=== PATIENT | female | born 1980 | race Hispanic/Latino ===

== ENCOUNTER 2021-07-04 16:23 | Observation (INO) | payer OTHER ==
[~2021-07-04 16:23] MED LIST: DOCUSATE SODIUM 100 MG CAP PO SCH
[2021-07-05] MEDS ORDERED: ONDANSETRON 4 MG/2 ML INJ IV PRN (09:00)
[2021-07-05] MEDS ORDERED: ALUM-MAG HYDROXIDE-SIMETHICONE 200-200-20MG/5ML ORAL LIQD 30 ML PO PRN (09:00)
[2021-07-05] MEDS ORDERED: ACETAMINOPHEN 325 MG TAB PO PRN (09:00)
[2021-07-05] MEDS ORDERED: SODIUM CHLORIDE 0.45% 1000 ML 1,000 ML IV SCH (09:00)
[2021-07-05] MEDS ORDERED: oxyCODONE /ACETAMINOPHEN 5-325MG TAB PO PRN (09:00)
[2021-07-05] MEDS ORDERED: MAGNESIUM HYDROXIDE (MOM) ORAL LIQD UDC PO PRN (09:00)
--- NOTE | 2021-07-05 11:28 | History and Physical Report ---
History of Present Illness Date of examination: 07/05/21 Date of admission: 07/05/21 08:57 Chief complaint: lightheadedness and dizziness, presenting for transfusion History of present illness: Patient is a G0 with h/o of complex endometrial hyperplasia with atypia and anemia secondary t chronic blood loss presenting for transfusion. Has been experiencing lightheadedness and dizziness intermittently for the past few weeks. Denies SOB and palpitations. H/H in the office was <6.0. told to present for transfusion. Amenable to receiving blood products. Past History Past Medical History: hypertension Past Surgical History: appendectomy Social history: no significant social history Medications and Allergies Allergies Allergy/AdvReac Type Severity Reaction Status Date / Time erythromycin base Allergy Unknown Unverified 07/04/21 16:30 Home Medications Medication Instructions Recorded Confirmed Last Taken Type No Known Home Medications [No 07/05/21 07/05/21 Unknown History Reported Home Medications] Active Meds: Active Medications Acetaminophen (Acetaminophen 325 Mg Tab) 650 mg PO Q4H PRN PRN Reason: Pain MILD(1-3)/Fever >100.5/CROOK Al Hydrox/Mg Hydrox/Simethicone (Alum-Mag Hydroxide-Simethicone [id number] Oral Liqd 30 Ml) 30 ml PO Q4H PRN PRN Reason: Indigestion Diphenhydramine HCl (Diphenhydramine 25 Mg Cap) 25 mg PO Q8H PRN PRN Reason: Itching Docusate Sodium (Docusate Sodium 100 Mg Cap) 100 mg PO BID RADHA Sodium Chloride (Nacl 0.45% 1000 Ml) 1,000 mls @ 100 mls/hr IV DIRECT RADHA Sodium Chloride (Nacl 0.9% 500 Ml) 500 mls @ 0 mls/hr IV ONCE ONE Stop: 07/05/21 11:07 Magnesium Hydroxide (Magnesium Hydroxide (Mom) Oral Liqd Udc) 30 ml PO Q4H PRN PRN Reason: Constipation Ondansetron HCl (Ondansetron 4 Mg/2 Ml Inj) 4 mg IV Q8H PRN PRN Reason: Nausea And Vomiting Oxycodone/Acetaminophen (Oxycodone /Acetaminophen 5-325mg Tab) 1 tab PO Q6H PRN PRN Reason: Pain, Moderate (4-6) Sodium Chloride (Sodium Chloride 0.9% 10 Ml Flush Syringe) 10 ml IV BID RADHA Sodium Chloride (Sodium Chloride 0.9% 10 Ml Flush Syringe) 10 ml IV PRN PRN PRN Reason: LINE FLUSH Review of Systems Constitutional: fatigue Genitourinary Female: abnormal vaginal bleeding Menstruation: menses 8 or > days (lightheadedness, dizziness) Exam - Constitutional Vitals: Temp Pulse Resp BP Pulse Ox 97.9 F 87 22 172/98 07/05/21 10:23 07/05/21 10:23 07/05/21 10:23 07/05/21 10:23 General appearance: Present: no acute distress - Respiratory Respiratory effort: normal Respiratory: bilateral: CTA - Cardiovascular Rhythm: regular Heart Sounds: Present: S1 & S2 - Abdominal General gastrointestinal: Present: soft, non-tender Female genitourinary: Present: deferred - Rectal Rectal Exam: deferred Results - Labs CBC & Chem 7: 07/05/21 11:13 Assessment and Plan Symptomatic Anemia secondary to chronic blood loss -recent Hemoglobin 6 -Type and cross. Will transfuse 2 units pRBCS -Posttransfusion hemoglobin to assess for appropriate rise
[2021-07-05 11:58] LABS: Blood Urea Nitrogen 12 mg/dL (7-17); Calcium 8.9 mg/dL (8.4-10.2); Hemolysis Index 6
[2021-07-05 11:59] LABS: BUN/Creatinine Ratio 20
[2021-07-05] MEDS ORDERED: SODIUM CHLORIDE 0.9% 500 ML 500 ML IV SCH (12:00)
[2021-07-05] MEDS ORDERED: diphenhydrAMINE 25 MG CAP PO PRN (12:00)
[2021-07-05] MEDS ORDERED: LISINOPRIL 20 MG TAB PO SCH (16:00)
[2021-07-05] MEDS ORDERED: amLODIPine 5 MG TAB PO SCH (16:00)
[2021-07-05] MEDS ORDERED: hydroCHLOROthiazide 25 MG TAB PO SCH (16:00)
[2021-07-05 21:53] LABS: Hematocrit 24.8 % (30.3-42.9); Hemoglobin 7.7 gm/dl (10.1-14.3)
--- NOTE | 2021-07-05 23:06 | Event Note ---
H/H reviewed. 7.7. Previously discussed with patient goal Hemoglobin 8 or above. Will transfuse additional unit. Patient BP also noted to be elevated. Now s/p home meds of amlodipine, HCTZ, and lisinopril. Will continue to monitor. If continues to be elevated will give dose of nifedipine. Consider medication adjustments and hospitalist consult in AM.
[2021-07-05] MEDS ORDERED: SODIUM CHLORIDE 0.9% 500 ML 500 ML IV ONE (23:38)
[2021-07-06 06:13] LABS: Hematocrit 24.8 % (30.3-42.9)
--- NOTE | 2021-07-06 07:34 | Discharge Summary ---
Providers - Providers Date of Admission: 07/05/21 08:57 Date of discharge: 07/06/21 Attending physician: BRENNAN BARTHOLOMEW Primary care physician: CHEMICAL TESTER Hospitalization Reason for admission: symptomatic anemia secondary to chronic blood loss Condition: Stable Pertinent studies: Posttransfusion CBC- Hemoglobin 8.0 Procedures: none Hospital course: Patient is a 41 yo G0 with history of complex endometrial hyperplasia with atypia and HTN who presented with symptomatic anemia for transfusion. Hemoglobin in office <6.0. Patient admitted and transfused 3 units of pRBCs to a posttransfusion hemoglobin of 8.0. On HD#1 during transfusion patient noted to have elevated blood pressures. Patient noted she had not taken her home medications for HTN. Given home medications of Amlodipine 5 mg, HCTZ 25 mg, and Lisinopril 20 mg. Blood pressures initially remained elevated, but responded and have been within normal limits. Patient discharged to home in stable condition on HD#2. Disposition: 01 HOME / SELF CARE / HOMELESS Final Discharge Diagnosis (Prints w/discharge instructions): Symptomatic chronic blood loss anemia Time spent for discharge: 30 minutes - Discharge Diagnoses (1) Anemia due to blood loss, chronic Status: Chronic (2) BMI 50.0-59.9, adult Status: Chronic (3) Complex atypical endometrial hyperplasia Status: Chronic (4) Excessive and frequent menstruation with regular cycle Status: Chronic (5) Hypertension Status: Chronic Qualifiers: Hypertension type: unspecified Qualified Code(s): I10 - Essential (primary) hypertension Core Measure Documentation - Palliative Care Palliative Care/ Comfort Measures: Not Applicable - Core Measures Any of the following diagnoses?: none Exam - Constitutional Vitals: Temp Pulse Resp BP Pulse Ox 98.0 F 87 18 128/76 97 07/06/21 05:05 07/06/21 05:05 07/06/21 05:05 07/06/21 05:05 07/06/21 05:05 General appearance: Present: no acute distress - EENT Eyes: Present: PERRL - Respiratory Respiratory effort: normal - Extremities Extremities: no ischemia, No edema - Abdominal General gastrointestinal: Present: soft, non-tender - Psychiatric Psychiatric: appropriate mood/affect Plan Activity: no restrictions Weight Bearing Status: Full Weight Bearing Diet: low salt Additional Instructions: Please take blood pressure medications as prescribed. Restart ferrous sulfate twice daily. Care Plan Goals: Call your doctor immediately for: * Fever > 100.5 * Heavy vaginal bleeding ( >1 pad per hour) * Severe persistent headache * Shortness of breath * Reddened, hot, painful area to leg or breast Plan of Treatment: patient to take blood pressure medications as perscribed previously Follow up with: PRIMARY CARE, [Primary Care Provider] - 7 Days CHRISTIANO HINSON MD [Staff Physician] - 14 Days Forms: [facility] Discharge Summary Prescriptions: Docusate Sodium [Colace] 100 mg PO BID #60 capsule Ferrous Sulfate [Feosol 325 MG tab] 325 mg PO BID #60 tablet
[2021-07-06 10:41] VITALS: BP 133/78
== END 2021-07-06 10:38 | disposition home or self-care (01) ==
LOC: 3A 16:23 → UNDOADMOB 16:23 → OB 07-05 08:57
PROVIDERS: ADMIT Obstetrics & Gynecology; ATTEND Obstetrics & Gynecology
DX: D50.0 Iron deficiency anemia secondary to blood loss (chronic) (principal); N85.02 Endometrial intraepithelial neoplasia [EIN]; N92.0 Excessive and frequent menstruation with regular cycle; I10 Essential (primary) hypertension; N85.01 Benign endometrial hyperplasia; Z90.49 Acquired absence of other specified parts of digestive tract; Z68.43 Body mass index [BMI] 50.0-59.9, adult
CPT/HCPCS: 36415; 36430; 80048; 85014; 85018; 86850; 86900; 86901; 86920; G0378; J7040; P9016; G0379

== ENCOUNTER 2021-07-30 06:04 | Day surgery (SDC) | payer OTHER ==
[~2021-07-30 06:04] MED LIST changes: -DOCUSATE SODIUM 100 MG CAP PO SCH; +LACTATED RINGERS 1,000 ML IV SCH
--- NOTE | 2021-07-30 07:26 | Anesthesia Consultation ---
Anesthesia Consult and Med Hx Date of service: 07/30/21 - Airway Anesthetic Teeth Evaluation: Good (broken tooth back bottom left) ROM Head & Neck: Adequate Mental/Hyoid Distance: Adequate Mallampati Class: Class III Intubation Access Assessment: Possibly Difficult - Pre-Operative Health Status ASA Pre-Surgery Classification: ASA3 Proposed Anesthetic Plan: General - Pulmonary Hx Smoking: No Hx Sleep Apnea: Yes (not using CPAP) - Cardiovascular System Hx Hypertension: Yes Hx Heart Attack/AMI: No - Central Nervous System Hx Seizures: No Hx Back Pain: No Hx Psychiatric Problems: No - Endocrine Hx End Stage Renal Disease: No - Hematic Hx Anemia: Yes Hx Sickle Cell Disease: No - Other Systems Hx Alcohol Use: No Hx Substance Use: No Hx Cancer: No Hx Obesity: Yes (Morbid obesity, BMI 50.5)
--- NOTE | 2021-07-30 07:27 | Anesthesia Day of Surgery ---
Anesthesia Day of Surgery - Day of Surgery Patient Examined: Yes Patient H&P Reviewed: Yes Patient is NPO: Yes
[2021-07-30] MEDS ORDERED: propofoL 200 MG/20 ML VIAL IV ONE (07:39)
[2021-07-30] MEDS ORDERED: LIDOCAINE MPF (2%) 20 MG/1 ML VIAL 5 ML ONE (07:39)
--- NOTE | 2021-07-30 07:53 | History and Physical Report ---
History of Present Illness Date of examination: 07/30/21 (Preop exam 07/26/2021) Date of admission: 07/30/2021 Chief complaint: "I'm here for my procedure" History of present illness: Patient is a 41 yo G0 with h/o complex endometrial hyperplasia with atypia presenting for hysteroscopy D&C.. Voices no current complaints. States vaginal bleeding has stopped recently. Denies fevers, chills, chest pain, SOB, n/v, abdominal pain, urinary symptoms. Past History Past Medical History: hypertension Past Surgical History: appendectomy [employer] History: other (endometrial hyperplasia with atypia ) Family/Genetic History: none Social history: no significant social history - Obstetrical History : 0 Medications and Allergies Allergies Allergy/AdvReac Type Severity Reaction Status Date / Time erythromycin base Allergy Unknown Unverified 07/04/21 16:30 Home Medications Medication Instructions Recorded Confirmed Last Taken Type Ferrous Sulfate [Feosol 325 MG tab] 325 mg PO BID #60 tablet 07/06/21 Unknown Rx amLODIPine 5 mg PO QDAY tablet 07/06/21 Unknown Rx hydroCHLOROthiazide [HCTZ] 25 mg PO QDAY tablet 07/06/21 Unknown Rx lisinopriL [Zestril TAB] 20 mg PO QDAY tablet 07/06/21 Unknown Rx Acetaminophen/Diphenhydramine [address] HS 07/23/21 07/23/21 Unknown History [Tylenol Pm Ex-Strength Caplet] Active Meds: Active Medications Hydrocodone Bitart/Acetaminophen (Hydrocodone/Acetaminophen 5-325 Mg Tab) 2 each PO ONCE PRN PRN Reason: Pain, Moderate (4-6) Hydromorphone HCl (Hydromorphone 1 Mg/1 Ml Inj) 0.5 mg IV Q10MIN PRN PRN Reason: Pain , Severe (7-10) Lactated Ringer's (Lactated Ringers) 1,000 mls @ 100 mls/hr IV DIRECT RADHA Stop: 07/30/21 23:59 Midazolam HCl (Midazolam 2 Mg/2 Ml Inj) 2 mg IV PREOP NR Stop: 07/30/21 23:59 Ondansetron HCl (Ondansetron 4 Mg/2 Ml Inj) 4 mg IV ONCE PRN PRN Reason: Nausea And Vomiting Review of Systems Constitutional: fatigue - Vital Signs Vital signs: Vital Signs Temp Pulse Resp BP Pulse Ox 98 F 75 20 143/93 97 07/27/21 09:30 07/27/21 09:30 07/27/21 09:30 07/27/21 09:30 07/27/21 09:30 Temp Pulse Resp BP Pulse Ox 97.8 F 88 18 138/98 97 07/30/21 06:25 07/30/21 06:25 07/30/21 06:25 07/30/21 06:25 07/30/21 06:25 - Physical Exam Cardiovascular: Regular rate, Normal S1, Normal S2 Lungs: Positive: Clear to auscultation Abdomen: Positive: normal appearance, soft Extremities: Positive: normal Results All other labs normal. Assessment and Plan - Patient Problems (1) Anemia due to blood loss, chronic Current Visit: No Status: Chronic (2) BMI 50.0-59.9, adult Current Visit: No Status: Chronic (3) Complex atypical endometrial hyperplasia Current Visit: No Status: Chronic Plan to address problem: To OR for hysteroscopy D&C Risks and benefits of procedure again reviewed Preop orders placed Discussed postop care and follow up. (4) Hypertension Current Visit: No Status: Chronic Qualifiers: Hypertension type: unspecified Qualified Code(s): I10 - Essential (primary) hypertension
[2021-07-30] MEDS ORDERED: MIDAZOLAM 2 MG/2 ML INJ ONE (07:55)
[2021-07-30] MEDS ORDERED: HYDROmorphone 1 MG/1 ML INJ IV PRN (08:00)
[2021-07-30] MEDS ORDERED: HYDROcodone/ACETAMINOPHEN 5-325 MG TAB PO PRN (08:00)
[2021-07-30] MEDS ORDERED: MIDAZOLAM 2 MG/2 ML INJ IV NR (08:00)
[2021-07-30] MEDS ORDERED: dexAMETHasone 20 MG/5 ML VIAL ONE (08:34)
[2021-07-30] MEDS ORDERED: ONDANSETRON 4 MG/2 ML INJ ONE (08:35)
[2021-07-30] MEDS ORDERED: SODIUM CHLORIDE 0.9% IRRIG SOLN 2000 ML IR ONE (08:39)
[2021-07-30] MEDS ORDERED: KETOROLAC 30 MG/1 ML INJ ONE (08:58)
[2021-07-30] MEDS ORDERED: ONDANSETRON 4 MG/2 ML INJ IV PRN (09:00)
--- NOTE | 2021-07-30 09:05 | Post Operative Note ---
Pre-op diagnosis: complex endmetrial hyperplasia with atypia Post-op diagnosis: same Findings: EUA: 8-10 week sized uterus with normal contour. Deviated to patient's left. Minimal decensus. Hysteroscopy: Thickened, proliferative endometrium. Bilateral tubal ostia not visualized secondary to fluffy endometrium. Procedure: Hysteroscopy D&C Anesthesia: GETA Surgeon: CHRISTIANO HINSON Estimated blood loss: 50-100ml Pathology: list (endometrial curettings) Specimen disposition: to lab Condition: stable Disposition: PACU
--- NOTE | 2021-07-30 09:42 | Discharge Summary ---
Providers - Providers Date of Admission: 07/30/2021 Attending physician: CHRISTIANO KWONG MD Primary care physician: CAMILO ZHAO Hospitalization - Discharge Diagnoses (1) Anemia due to blood loss, chronic Status: Chronic (2) BMI 50.0-59.9, adult Status: Chronic (3) Complex atypical endometrial hyperplasia Status: Chronic (4) Hypertension Status: Chronic Qualifiers: Hypertension type: unspecified Qualified Code(s): I10 - Essential (primary) hypertension Exam - Constitutional Vitals: Temp Pulse Resp BP Pulse Ox 97.8 F 88 14 138/98 97 07/30/21 06:25 07/30/21 06:25 07/30/21 09:26 07/30/21 06:25 07/30/21 06:25 Plan Plan of Treatment: TAKE MEDS PRESCRIBED YOU MAY RESUME YOUR REGULAR DIET -- AVOID SPICY OR GREASY FOODS FOR FIRST MEAL TODAY DO NOT DRIVE, OPERATE HEAVY EQUIPMENT OR SIGN LEGAL DOCUMENTS X 24 HRS Call your doctor immediately for: * Fever > 100.5 * Heavy vaginal bleeding ( >1 pad per hour) * Severe abdominal pain * Shortness of breath * Please [place] two [place] [facility] [place] with: CHRISTIANO KWONG MD [Staff Physician] - 14 Days Forms: Outpatient Surgery DC Inst. Prescriptions: Ibuprofen [Motrin 800 MG tab] 800 mg PO Q8HR PRN #30 tablet PRN Reason: Pain, Moderate (4-6)
--- NOTE | 2021-07-30 09:58 | Operative Report ---
Operative Report Operative Report: PROCEDURE DATE: 07/30/2021 PREOPERATIVE DIAGNOSIS: complex endometrial hyperplasia with atypia POSTOPERATIVE DIAGNOSIS: same PROCEDURE: Exam under anesthesia, Hysteroscopy D&C EBL: 50 ml ANESTHESIA: General COMPLICATIONS: None TOTAL IV FLUIDS:200 mL FLUID DEFICIT: 350 mL URINE OUTPUT: 75 mL FINDINGS: EUA: 8-10 week sized uterus with normal contour. Deviated to patient's left. Minimal decensus. Hysteroscopy: Abundant, proliferative endometrium. Bilateral tubal ostia not visualized secondary to the thickened endometrium. PROCEDURE IN DETAIL: Risks, benefits and alternatives discussed with the patient at length. Informed consent was obtained. The patient was taken to the operating room and identified as Parvin Christianson. General anesthesia was obtained without difficulty. She was prepped and draped in the normal sterile fashion in lithotomy position in [facility] stirrups. Examination under anesthesia as above Speculum was placed inside the vagina. The anterior lip of the cervix was grasped with single-tooth tenaculum. The uterus was sounded to 8 cm. The cervix was gently dilated to accommodate the 5mm hysteroscope. Above findings were noted. The hysteroscope was removed. Sharp curettage followed. Endometrial curettings obtained and sent to pathology. All instruments removed from the patients vagina. Hemostasis was noted from the tenaculum site. The patient was taken to the recovery room in stable condition.
--- NOTE | 2021-07-30 10:01 | Discharge Summary ---
Providers - Providers Date of Admission: 07/30/2021 Date of discharge: 07/30/21 Attending physician: CHRISTIANO KWONG MD none Primary care physician: CAMILO ZHAO Hospitalization Reason for admission: hysteroscopy D&C Condition: Good Pertinent studies: none Procedures: Hysteroscopy, dilation and curettage Hospital course: TO OR for Hysteroscopy D&C. See operative note for additional details. Patient tolerated procedure well. Discharged home in stable condition on POD #0 Disposition: 01 HOME / SELF CARE / HOMELESS Final Discharge Diagnosis (Prints w/discharge instructions): S/p Hysteroscopy D&C. Complex endometrial hyperplasia with atypia Time spent for discharge: 30 minutes - Discharge Diagnoses (1) Complex atypical endometrial hyperplasia Status: Chronic Core Measure Documentation - Palliative Care Palliative Care/ Comfort Measures: Not Applicable - Core Measures Any of the following diagnoses?: none Exam - Constitutional Vitals: Temp Pulse Resp BP Pulse Ox 97.9 F 80 13 159/99 97 07/30/21 09:09 07/30/21 09:45 07/30/21 09:45 07/30/21 09:45 07/30/21 09:45 General appearance: Present: no acute distress - EENT Eyes: Present: PERRL ENT: hearing intact, clear oral mucosa, dentition normal - Neck Neck: Present: supple, normal ROM - Respiratory Respiratory effort: normal Respiratory: bilateral: CTA - Cardiovascular Heart Sounds: Present: S1 & S2. Absent: rub, click - Extremities Extremities: no ischemia, No edema - Abdominal General gastrointestinal: Present: soft, non-tender Female genitourinary: Present: normal - Rectal Rectal Exam: deferred - Integumentary Integumentary: Present: clear, warm, dry - Musculoskeletal Musculoskeletal: gait normal, strength equal bilaterally - Psychiatric Psychiatric: appropriate mood/affect, intact judgment & insight - Neurologic Neurologic: CNII-XII intact, moves all extremities Plan Activity: no restrictions Weight Bearing Status: Weight Bear as Tolerated Diet: low salt Plan of Treatment: TAKE MEDS PRESCRIBED YOU MAY RESUME YOUR REGULAR DIET -- AVOID SPICY OR GREASY FOODS FOR FIRST MEAL TODAY DO NOT DRIVE, OPERATE HEAVY EQUIPMENT OR SIGN LEGAL DOCUMENTS X 24 HRS Call your doctor immediately for: * Fever > 100.5 * Heavy vaginal bleeding ( >1 pad per hour) * Severe abdominal pain * Shortness of breath * Please schedule two [place] [facility] [place] with: CHRISTIANO KWONG MD [Staff Physician] - 14 Days Forms: Outpatient Surgery DC Inst. Prescriptions: Ibuprofen [Motrin 800 MG tab] 800 mg PO Q8HR PRN #30 tablet PRN Reason: Pain, Moderate (4-6) Pending Studies Pathology- endometrial curettings
--- NOTE | 2021-07-30 12:30 | Post Anesthesia Evaluation ---
- Post Anesthesia Evaluation Patient Participated: Yes Airway Patent: Yes Stable Respiratory Function: Yes Nausea/Vomiting: No Temp > 96.8F: Yes Pain Manageable: Yes Adequeate Hydration: Yes Anesthesia Complications: No
[2021-07-30 13:16] VITALS: BP 162/97
== END 2021-07-30 11:00 | disposition home or self-care (01) ==
LOC: OR 06:04
PROVIDERS: ATTEND Student in an Organized Health Care Education/Training Program
DX: C54.1 Malignant neoplasm of endometrium (principal); Z20.822 Contact with and (suspected) exposure to COVID-19; I10 Essential (primary) hypertension; E66.01 Morbid (severe) obesity due to excess calories; Z68.43 Body mass index [BMI] 50.0-59.9, adult; D50.9 Iron deficiency anemia, unspecified; Z79.899 Other long term (current) drug therapy; Z88.1 Allergy status to other antibiotic agents; Z98.890 Other specified postprocedural states
CPT/HCPCS: 58558; 81025; 88305; A4217; J0690; J1100; J1170; J1885; J2250; J2405; J2704; J7120; U0003